=== PATIENT | male | born 1990 | race Caucasian/White ===

== ENCOUNTER 2018-07-14 08:53 | Day surgery (SDC) | payer BC, OTHER ==
[2018-07-14] MEDS ORDERED: NS 1,000 ML IV ONE (08:55)
[2018-07-14] MEDS ORDERED: BACITRACIN IRRIGATION/NS 50,000 UNITS/1,000 ML BTL IRR ONE (08:55)
[2018-07-14] MEDS ORDERED: ceFAZolin 2 GM/DEXTROSE 100 ML IV ONE (08:55)
[2018-07-14] MEDS ORDERED: DIAZEPAM 5 MG TAB PO ONE (08:55)
[2018-07-14] MEDS ORDERED: diphenhydrAMINE 25 MG CAP PO ONE (08:55)
[2018-07-14 09:32] LABS: PLATELET COUNT 286 10^3/uL (150-400)
[2018-07-14 09:41] LABS: INR 1.02 (0.83-1.16); PROTIME(PATIENT) 13.6 SEC (12.0-15.0)
[2018-07-14] MEDS ORDERED: MIDAZOLAM 2 MG/2 ML VIAL ONE ×3 (10:08→11:01)
[2018-07-14] MEDS ORDERED: fentaNYL 100 MCG/2 ML INJ ONE ×2 (10:08→10:43)
[2018-07-14] MEDS ORDERED: LIDOCAINE 1% 300 MG/30 ML SDV ONE (10:08)
[2018-07-14] MEDS ORDERED: BUPIVACAINE 0.75% 10 ML SDV ONE (10:09)
--- NOTE | 2018-07-14 10:27 | PDGENHP ---
History & Physical Chief Complaint: 3rd degree av block Relevant Physical Exam: [id number] rrr cta ao3 Cardiorespiratory Assessment: congenital complete av block. pm generator change. has escape at 35-40 bpm so no temp wire
--- NOTE | 2018-07-14 10:27 | PDPROPOC ---
Sedation Plan of Care Sedation Plan of Care: vital signs stable, mental status noted, patient educated of risks, benefits, alternatives, patient can tolerate sedation ASA Classification: ASA 1 Planned drugs: fentanyl Mallampati Score: Class 1 Mallampati Reference Image: Patient passed 3-3-2 rule?: Yes
[2018-07-14] MEDS ORDERED: HYDROCODONE/APAP 5/325 TAB PO PRN (11:36)
--- NOTE | 2018-07-14 11:36 | EPPROC ---
Electrophysiology Procedure Note: PROCEDURE PERFORMED: 1. AV Pacemaker generator change - retromuscular 2. Pocket revision 3. Scar revision INDICATION: Pacemaker generator at PAUL Bradycardia PROCEDURE NOTE: Patient presented to the cardiac catheterization laboratory in a fasting, postabsorptive state. EP RN administered sedation. The L infraclavicular area was prepped and draped in the usual sterile fashion. Lidocaine plus bupivacaine was used for local anesthesia. Keloid was excised using a crescent shaped incision. Using a combination of blunt and sharp dissection and electrocautery, the dissection was carried down to the prepectoral fascia and the existing pacemaker pocket was opened. Pocket was enlarged to fit current generator. The pacemaker generator was disconnected from the leads and the lead thresholds and impedance were checked. The pacemaker pocket was copiously irrigated with antibiotic solution. The pocket was again inspected for any bleeding. The leads were attached to the pacemaker securely. The pacemaker was inserted into the pocket and secured in place with a nonabsorbable suture. The pacemaker pocket was closed in 4 layers with absorbable monocryl sutures and lidia. Appropriate dressing was applied. The patient left the cardiac catheterization laboratory in stable condition. Serial Numbers: 1. Device [facility] [id number] 2. Atrial Lead [facility] [id number] 3. Ventricular Lead [facility] [id number] Stimulation Thresholds & Impedance Measurements: 1. Atrial Lead P 2.5 mV 410 ohm 0.5 V 0.5 ms 2. Ventricular Lead R 9 mV 660 ohm 0.75 V 0.5 ms [place] Pacing Parameters 1. Pacing mode DDD 2. Lower rate 50 ppm 3. Upper tracking rate 190 ppm Patient Problems: Problems Problem Status Onset Complete heart block Acute
--- NOTE | 2018-07-16 12:57 | CPEKG ---
Test Reason : OPEN Blood Pressure : / mmHG Vent. Rate : 079 BPM Atrial Rate : 079 BPM P-R Int : 161 ms QRS Dur : 167 ms QT Int : 435 ms P-R-T Axes : 044 -82 090 degrees QTc Int : 499 ms Atrial-sensed ventricular-paced rhythm Confirmed by Yusuf Elias ([id number]) on 07/16/2018 12:57:04 PM Referred By: Confirmed By:Yuusf Elias
== END 2018-07-14 13:50 | disposition home or self-care (01) ==
LOC: FCATH 08:53
PROVIDERS: ATTEND Internal Medicine Cardiovascular Disease
PROC: 0JH606Z Insertion of Pacemaker, Dual Chamber into Chest Subcutaneous Tissue and Fascia, Open Approach (ICD-10-PCS; principal; 2018-07-14)
PROC: 0JPT0PZ Removal of Cardiac Rhythm Related Device from Trunk Subcutaneous Tissue and Fascia, Open Approach (ICD-10-PCS; principal; 2018-07-14)
DX: Z45.018 Encounter for adjustment and management of other part of cardiac pacemaker (principal); R00.1 Bradycardia, unspecified; Q24.5 Malformation of coronary vessels
CPT/HCPCS: C1785; J0690; J2250; J3010